=== PATIENT | female | born 1985 | race Two or more races ===

== ENCOUNTER 2018-12-29 13:50 | Observation (INO) | payer MEDICAID ==
[2018-12-29] MEDS ORDERED: PREN27TA7 PO (14:44)
== END 2018-12-29 15:20 | disposition home or self-care (01) | DRG 566 ==
LOC: LDRP 13:50
PROVIDERS: ADMIT Obstetrics & Gynecology; ATTEND Obstetrics & Gynecology
DX: O36.8330 Maternal care for abnormalities of the fetal heart rate or rhythm, third trimester, not applicable or unspecified (principal); Z3A.37 37 weeks gestation of pregnancy
CPT/HCPCS: 59025; 76818; 81002; G0378

== ENCOUNTER 2019-01-02 10:09 | Observation (INO) | payer MEDICAID ==
[~2019-01-02 10:09] MED LIST: PREN27TA7 PO
== END 2019-01-02 11:15 | disposition home or self-care (01) | DRG 566 ==
LOC: LDRP 10:09
PROVIDERS: ADMIT Obstetrics & Gynecology; ATTEND Obstetrics & Gynecology
DX: O76 Abnormality in fetal heart rate and rhythm complicating labor and delivery (principal); Z3A.37 37 weeks gestation of pregnancy
CPT/HCPCS: 76818; G0378

== ENCOUNTER 2019-01-09 10:14 | Observation (INO) | payer MEDICAID | END 2019-01-09 11:20 | disposition home or self-care (01) | DRG 566 | LOC: LDRP 10:14 | PROVIDERS: ADMIT Specialist; ATTEND Specialist | DX: O26.893 Other specified pregnancy related conditions, third trimester (principal); Z3A.38 38 weeks gestation of pregnancy | CPT/HCPCS: 59025; 76818; 81002; G0378 ==